=== PATIENT | male | born 1940 | race Caucasian/White ===

== ENCOUNTER → 2017-03-03 | Outpatient (CLI) | payer MEDICARE ==
[~2017-03-03] MED LIST: ASA CHILDREN'S81 MG PO; CALTRATE-600 D600 MG PO; DALIRESP500 MCG PO; DELTASONE DPS10 MG PO; DUONEB DPS3 ML IH; MUCINEX600 MG PO; OMEGA-3 DPS1000 MG PO; SPIRIVA18 MCG IH; SYMBICORT 16010.2 GM IH; ZITHROMAX250 MG PO; ZOLOFT DPS25 MG PO
== END | disposition home or self-care (01) ==
LOC: RAD.S 10:00
DX: R06.02 Shortness of breath (principal); J43.9 Emphysema, unspecified; J90 Pleural effusion, not elsewhere classified; R91.8 Other nonspecific abnormal finding of lung field; Z98.890 Other specified postprocedural states

== ENCOUNTER → 2017-03-11 | Outpatient (CLI) | payer MEDICARE | END | disposition home or self-care (01) | LOC: RESC 12:57 | DX: J44.9 Chronic obstructive pulmonary disease, unspecified (principal); R06.00 Dyspnea, unspecified ==